=== PATIENT | male | born 1955 | race Caucasian/White ===

== ENCOUNTER 2022-08-31 12:00 | Observation (INO) | payer MEDICARE ==
[2022-08-31] VITALS (33 sets, daily range): BP systolic 146–204; BP diastolic 72–129
[~2022-08-31] VITALS: Ht 177.8 cm; Wt 102.2 kg
[~2022-08-31 12:00] MED LIST changes: -AMLODIPINE BESYL5 MG PO; -LOSARTAN POTASS50 MG PO
[2022-08-31 14:25] LABS: BASO% 0.2 % (0-3); EOS% 1.3 % (0-8); HEMATOCRIT 48.7 % (39.0-50.0); HEMOGLOBIN 16.2 g/dl (14.0-18.0); IMMATURE GRANULOCYTES 0.2 % (0.0-5.0); LYMPH% 17.5 % (15-41); MEAN CORPUSCULAR HGB 30.3 pG CALC (26.0-32.0); MEAN CORPUSCULAR HGB CONC 33.3 g/dL CAL (32.0-36.0); MONO% 4.6 % (2-13); NEUT# 4.1 thou/uL (1.82-7.42); NEUT% 76.2 % (42-76); RED BLOOD COUNT 5.35 mill/uL (4.70-6.10); RED CELL DISTRI WIDTH 11.7 % (11.5-15.5)
[2022-08-31 14:41] LABS: ALBUMIN 4.9 g/dL (3.2-5.0); ALKALINE PHOSPHATASE 76 u/l (38-126); ANION GAP 15 (6-22 (CALC)); BILIRUBIN, TOTAL 1.6 mg/dL (0.2-1.3); BUN 12 mg/dL (8-23); BUN/CREATININE RATIO 12 (12-20 (CALC)); CARBON DIOXIDE 29 mmol/l (22-30); CHLORIDE 103 mmol/l (95-108); GFR FOR AFR.AMER. > 60 ML/MIN (>=60 (CALC)); GFR OTHER RACES > 60 ML/MIN (>=60 (CALC)); POTASSIUM 4.8 mmol/l (3.5-5.1); SGOT/AST 27 u/l (19-48); SODIUM 143 mmol/l (137-146); TOTAL PROTEIN 8.4 g/dL (6.3-8.2)
[2022-09-01 03:26] VITALS: BP 139/81
[2022-09-01 05:55] VITALS: BP 188/109
[2022-09-01 06:05] LABS: HEMATOCRIT 46.5 % (39.0-50.0); HEMOGLOBIN 15.8 g/dl (14.0-18.0); MEAN CELL VOLUME 91.5 fL CALC (80.0-100.0); MEAN CORPUSCULAR HGB 31.1 pG CALC (26.0-32.0); RED BLOOD COUNT 5.08 mill/uL (4.70-6.10)
[2022-09-01 06:24] LABS: ALBUMIN 4.4 g/dL (3.2-5.0); ALKALINE PHOSPHATASE 75 u/l (38-126); ANION GAP 13 (6-22 (CALC)); BILIRUBIN, TOTAL 1.1 mg/dL (0.2-1.3); BUN 13 mg/dL (8-23); BUN/CREATININE RATIO 12 (12-20 (CALC)); CARBON DIOXIDE 24 mmol/l (22-30); CHLORIDE 108 mmol/l (95-108); CREATININE 1.1 mg/dL (0.7-1.3); GFR FOR AFR.AMER. > 60 ML/MIN (>=60 (CALC)); GFR OTHER RACES > 60 ML/MIN (>=60 (CALC)); MAGNESIUM 2.3 mg/dL (1.6-2.3); SGOT/AST 24 u/l (19-48); SODIUM 141 mmol/l (137-146); TOTAL PROTEIN 7.9 g/dL (6.3-8.2)
[2022-09-01 06:28] LABS: POTASSIUM 3.6 mmol/l (3.5-5.1)
[2022-09-01 06:52] VITALS: BP 173/102
[2022-09-01 07:59] VITALS: BP 173/100
[2022-09-01 09:43] VITALS: BP 149/97
[2022-09-01] MEDS ORDERED: LOSARTAN POTASS50 MG PO (11:15)
[2022-09-01] MEDS ORDERED: AMLODIPINE BESYL5 MG PO (11:15)
== END 2022-09-01 13:50 | disposition home or self-care (01) ==
LOC: ED 12:00 → ED-I 15:00 → ED 15:22 → MS2 15:23
PROVIDERS: Emergency Medicine; ADMIT Internal Medicine; ATTEND Internal Medicine
DX: I10 Essential (primary) hypertension (principal); I44.0 Atrioventricular block, first degree; Z98.890 Other specified postprocedural states
CPT/HCPCS: J1650

== ENCOUNTER → 2022-08-31 | Day surgery (SDC) | payer MEDICARE ==
[~2022-08-31] MED LIST: AMLODIPINE BESYL5 MG PO; BAYER CHEWABLE81 MG PO; LOSARTAN POTASS50 MG PO
[2022-08-31 12:03] VITALS: BP 188/109
== END | disposition short-term general hospital (02) ==
LOC: ENDO 08:43
PROVIDERS: ATTEND Surgery
PROC: 0DJD8ZZ Inspection of Lower Intestinal Tract, Via Natural or Artificial Opening Endoscopic (ICD-10-PCS; principal; 2022-08-31)
DX: Z12.11 Encounter for screening for malignant neoplasm of colon (principal); K57.30 Diverticulosis of large intestine without perforation or abscess without bleeding; K64.8 Other hemorrhoids; R03.0 Elevated blood-pressure reading, without diagnosis of hypertension
CPT/HCPCS: G0121